=== PATIENT | male | born 1955 | race American Indian/Alaskan Native ===

== ENCOUNTER 2017-01-22 17:14 | Emergency (ER) | payer OTHER ==
--- NOTE | 2017-01-22 17:42 | C.PDOC ---
History Of Present Illness Patient is a 61 y/o M presenting with draining surgical wound. He was sent from [facility] with transfer paperwork saying that he is to be transferred to [facility]. Patient is reporting that he wants to go to [facility] where his niece and surgeon is waiting for him. Patient refusing additional care at [facility]. Patieet reports that he was a hx of recto- urethra and had surgical repair in November at [facility] with colostomy and subsequent wound dehiscience. Scheduled to see his surgeon yahaira. Time Seen by Provider: 01/22/17 17:17 Chief Complaint (Nursing): Abnormal Skin Integrity Past Medical History Vital Signs: Last Vital Signs Temp 98 F 01/22/17 17:35 Pulse 102 H 01/22/17 17:35 Resp 18 01/22/17 17:45 BP 103/67 01/22/17 17:35 Pulse Ox 95 01/22/17 17:35 Family History: States: No Known Family Hx Physical Exam - Physical Exam Appears: Well, Non-toxic, No Acute Distress Head: Atraumatic, Normacephalic Eye(s): bilateral: Normal Inspection, PERRL, EOMI Neck: Supple Cardiovascular: Rhythm Regular Respiratory: Normal Breath Sounds Gastrointestinal/Abdominal: Soft, No Tenderness, Other (colostomy bag to R abdomen. open incision to L abdomen with packing) Medical Decision Making Medical Decision Making: Refusing medical care and requesting dc to [facility]. MSE performed. Spoke to [facility] and they report that patient was sent to [facility] in error and patient's family and surgeon are waiting for him at [facility]. [facility] sending [facility] ambulance to get patient as he does not want further care here. Will dc back to [facility]. Disposition - Disposition Disposition: HOME/ ROUTINE Disposition Time: 17:42 Condition: FAIR Additional Instructions: Return if you want medical care at [facility]. Follow-up with your surgeon at [facility]. Forms: [employer] (I[place]ic) - Clinical Impression Clinical Impression: Wound dehiscence
[2017-01-22 17:43] VITALS: BP 103/67; PULSE 102; TEMP 98; O2SAT 95
[2017-01-22 17:57] VITALS: RESP 18
== END 2017-01-22 17:57 | disposition home or self-care (01) ==
LOC: C.ER 17:14
DX: T81.31XD Disruption of external operation (surgical) wound, not elsewhere classified, subsequent encounter (principal); Y83.9 Surgical procedure, unspecified as the cause of abnormal reaction of the patient, or of later complication, without mention of misadventure at the time of the procedure